=== PATIENT | male | born 1990 | race Two or more races ===

== ENCOUNTER 2023-09-25 20:22 | Emergency (ER) | payer OTHER ==
[~2023-09-25] VITALS: Ht 175.3 cm; Wt 83.9 kg
[2023-09-25] MEDS ORDERED: KETOROLAC TROMETHAMINE 30 MG VIAL IM STA (21:30)
[2023-09-25] MEDS ORDERED: KETOROLAC TROMETHAMINE 30 MG VIAL ONE (21:53)
== END 2023-09-25 22:15 | disposition home or self-care (01) ==
LOC: ER 20:23
DX: M79.672 Pain in left foot (principal)